=== PATIENT | female | born 1995 | race Caucasian/White ===

== ENCOUNTER 2019-09-14 15:38 | Emergency (ER) | payer OTHER ==
--- NOTE | 2019-09-14 16:34 | ERPHSYRPT ---
- History of Present Illness Source: patient Exam Limitations: no limitations Patient Subjective Stated Complaint: pt co pain since yesterday to right lower calf, Triage Nursing Assessment: pt alert walked in with mask, resp easy, skin w.d.p she has not swelling, reddnes or warmth, ppp Physician History: 24 yo wf w R calf pain rated 3/10 x 1 day. Pt denies trauma and wants to know if she has a DVT. She is on OC but denies h/o DVT/tobacco use. Pt denies chest pain and dyspnea. Method of Injury: unknown Occurred: yesterday Quality: constant Severity of Pain-Max: mild Severity of Pain-Current: mild Lower Extremities Pain: leg: right (mild 4/10) Modifying Factors: Improves With: nothing Associated Symptoms: none Allergies/Adverse Reactions: No Known Drug Allergies Allergy (Unverified 09/14/19 15:49) Home Medications: Norgestimate-Ethinyl Estradiol [Sprintec 28 Day Tablet] 1 ea DAILY 09/14/19 [History] Hx Tetanus, Diphtheria Vaccination/Date Given: No Hx Influenza Vaccination/Date Given: Yes Hx Pneumococcal Vaccination/Date Given: No Immunizations Up to Date: Yes Travel Risk - International Travel Have you traveled outside of the country in past 3 weeks: No - Review of Systems Constitutional: No Symptoms Eyes: No Symptoms Ears, Nose, & Throat: No Symptoms Respiratory: No Symptoms Cardiac: No Symptoms Abdominal/Gastrointestinal: No Symptoms Genitourinary Symptoms: No Symptoms Skin: No Symptoms Neurological: No Symptoms Psychological: No Symptoms Endocrine: No Symptoms Hematologic/Lymphatic: No Symptoms Immunological/Allergic: No Symptoms - Past Medical History Pertinent Past Medical History: No Neurological History: No Pertinent History ENT History: No Pertinent History Cardiac History: No Pertinent History Respiratory History: No Pertinent History Endocrine Medical History: No Pertinent History GI Medical History: No Pertinent History History: No Pertinent History Psycho-Social History: No Pertinent History Female Reproductive Disorders: No Pertinent History - Past Surgical History Past Surgical History: Yes Neuro Surgical History: No Pertinent History Cardiac: No Pertinent History Respiratory: No Pertinent History Gastrointestinal: No Pertinent History Genitourinary: No Pertinent History Musculoskeletal: No Pertinent History Female Surgical History: No Pertinent History - Social History Smoking Status: Never smoker Exposure to second hand smoke: No Drug Use: none Patient Lives Alone: Yes - Female History Hx Last Menstrual Period: now Hx Now: No - Nursing Vital Signs Nursing Vital Signs: Initial Vital Signs Pulse Rate 98 H 09/14/19 16:32 Respiratory Rate 18 09/14/19 16:32 Blood Pressure 117/78 09/14/19 16:32 O2 Sat by Pulse Oximetry 99 09/14/19 16:32 Pain Scale Pain Intensity 2 - Physical Exam General Appearance: no apparent distress Eyes, Ears, Nose, Throat Exam: normal ENT inspection Neck Exam: normal inspection, non-tender, supple, full range of motion Cardiovascular/Respiratory Exam: normal breath sounds, regular rate/rhythm, heart sounds normal, no JVD Back Exam: normal inspection, normal range of motion Hips Exam: bilateral: non-tender, normal inspection, normal range of motion, no evidence of injury Legs Exam: right leg: non-tender (R calf w mild TTP/No edema/No erythma/No deformity/Good distal capillary return and sensation) Knees Exam: bilateral knee: non-tender, normal inspection, normal range of motion, no evidence of injury Ankle Exam: bilateral ankle: non-tender, normal inspection, normal range of motion, no evidence of injury Foot Exam: bilateral foot: non-tender, normal inspection, normal range of motion, no evidence of injury Neuro/Tendon Exam: normal sensation, normal motor functions, normal tendon functions, responds to pain, no evidence tendon injury, No motor deficit, No sensory deficit Mental Status Exam: alert, oriented x 3, cooperative Skin Exam: normal color, warm, dry, No rash - Course Nursing assessment & vital signs reviewed: Yes - Radiology Ultrasound Exam Venous Lower Extremity Ultrasound: Other (RLE neg for DVT per tech) Ordered Tests: Active Orders 24 hr Category Date Time Status VENOUS UNILAT/LIMITED EXTREMIT [US] Stat Exams 09/14/19 16:32 Taken - Progress Progress: unchanged Progress Note: 09/14/19 19:11 Discussed w pt neg venous doppler of RLE. Counseled pt/family regarding: rad results - Departure Departure Disposition: Home Clinical Impression: Right calf pain Condition: Stable Critical Care Time: No Referrals: DOCTOR,NO FAMILY [Primary Care Provider] - Instructions: Lower Extremity Muscle Strain (DC) Additional Instructions: Heat/Rest/Massage Motrin/tylenol for pain Follow up with family MD for continued pain
[2019-09-14 16:38] VITALS: BP 117/78; PULSE 98; O2SAT 99
--- NOTE | 2019-09-14 21:02 | XRAY ---
Exam: Right lower extremity duplex Doppler venous ultrasound exam from 09/14/2019. Comparison: None. Indication: Right calf pain. Findings: Amaral scale images, color flow images, and Doppler tracings were obtained of the deep veins of the right lower extremity. There is normal transducer compression, color blood flow imaging, and Doppler signal augmentation within the right common femoral vein, proximal, mid, and distal superficial femoral vein, popliteal vein, and tibial/peroneal trunk. Normal transducer compression is seen involving the distal posterior tibial veins. Normal compression of the greater saphenous vein is seen. The greater saphenous vein within the proximal right thigh compresses normally. Normal color blood flow and Doppler signal is seen within the profunda femoral vein. Impression: 1. No evidence of deep venous thrombosis is seen within the right lower extremity. Nor do I see evidence of superficial venous thrombosis.
== END 2019-09-14 16:47 | disposition home or self-care (01) ==
LOC: ED 15:38
DX: M79.661 Pain in right lower leg (principal)
CPT/HCPCS: 93971; 99283